=== PATIENT | male | born 1960 | race Caucasian/White ===

== ENCOUNTER → 2018-08-29 | Outpatient (CLI) | payer MEDICARE, MEDICAID ==
[~2018-08-29] MED LIST: BUPR150T9 MT; QUET25TA34 MT
== END | disposition home or self-care (01) ==
LOC: RAD 08:04
PROVIDERS: ATTEND Internal Medicine
DX: S93.401S Sprain of unspecified ligament of right ankle, sequela (principal); M17.11 Unilateral primary osteoarthritis, right knee; M25.471 Effusion, right ankle; X58.XXXS Exposure to other specified factors, sequela
CPT/HCPCS: 73562; 73610

== ENCOUNTER 2018-10-08 12:37 | Inpatient (IN) | payer MEDICARE, MEDICAID ==
[~2018-10-08] VITALS: Ht 180.3 cm; Wt 129.3 kg
[2018-10-08 13:09] VITALS: BP 118/70
[2018-10-08 14:00] VITALS: BP 118/70
[2018-10-08] MEDS ORDERED: CLONIDINE 0.1MG TABLET PO PRN (15:45)
[2018-10-08] MEDS ORDERED: ONDANSETRON HCL 4MG/2ML INJ IV PRN (15:45)
[2018-10-08] MEDS ORDERED: ENOXAPARIN 40MG/0.4ML SYR SUBCUT SCH (15:45)
[2018-10-08] MEDS ORDERED: ACETAMINOPHEN 325MG TABLET PO PRN (15:45)
[2018-10-08] MEDS ORDERED: IPRATROPIUM/ALBUTEROL 0.5-3(2.5)MG/3ML NEB INH PRN (15:45)
[2018-10-08 16:00] VITALS: BP 118/58
[2018-10-08] MEDS ORDERED: QUET25TA34 MT (17:07)
[2018-10-08] MEDS ORDERED: BUPR150T9 MT (17:07)
[2018-10-08] MEDS: METHYLPREDNISOLONE SOD SUCC 40 MG/ML VIAL IV SCH ×2 (17:39→22:02)
[2018-10-08] MEDS: ASPIRIN 81MG EC TABLET PO SCH (17:40)
[2018-10-08 20:00] VITALS: BP 148/82
[2018-10-08] MEDS ORDERED: FUROSEMIDE 40MG/4ML VIAL IVP ONE (21:00)
[2018-10-08] MEDS ORDERED: FUROSEMIDE 40MG TABLET PO SCH (21:00)
[2018-10-08] MEDS: AMLODIPINE 2.5MG TABLET PO SCH (21:11)
[2018-10-08] MEDS: ATORVASTATIN CALCIUM 10MG TABLET PO SCH (21:12)
[2018-10-08] MEDS: HYDROCODONE/ACETAMINOPHEN 5/325MG TABLET PO PRN (21:12)
[2018-10-08 21:57] LABS: BASOPHILS % 0.3 % (0.0-2.0); EOSINOPHILS % 0.3 % (0.0-5.0); HEMATOCRIT. 45.4 % (42.0-52.0); HEMOGLOBIN. 15.2 g/dL (14.0-18.0); LYMPHOCYTES % 9.4 % (20.0-50.0); MEAN CORPUSCULAR HEMOGLOBIN 28.9 pg (28.0-32.0); MEAN CORPUSCULAR VOLUME 86.5 fL (80.0-94.0); MEAN PLATELET VOLUME 7.5 fl (7.4-10.4); MONOCYTES % 2.1 % (2.0-8.0); NEUTROPHILS % 87.9 % (40.0-76.0); PLATELET 276 x1000/uL (130-400); RED BLOOD CELL COUNT 5.25 mill/uL (4.7-6.1); RED CELL DISTRIBUTION WIDTH 15.1 % (11.6-14.6)
[2018-10-08 21:58] LABS: CHLORIDE 103 mEq/L (98-107)
[2018-10-08] MEDS ORDERED: PROMETHAZINE/DEXTROMETHORPHAN 6.25-15MG/5ML BOTTLE 120ML PO PRN (22:00)
[2018-10-08 22:52] LABS: CREATINE KINASE 346 IU/L (39-308)
[2018-10-08 22:57] LABS: CLARITY URINE TURBID (CLEAR); COLOR URINE YELLOW (YELLOW); KETONES URINE NEGATIVE (NEGATIVE); LEUKOCYTE ESTERASE URINE NEGATIVE (NEGATIVE); NITRITE URINE NEGATIVE (NEGATIVE); OCCULT BLOOD URINE NEGATIVE (NEGATIVE); PH URINE 8.5 (4.5-8.0); PROTEIN URINE NEGATIVE (NEGATIVE); SPECIFIC GRAVITY URINE 1.016 (1.005-1.030); UROBILINOGEN URINE 0.2 E.U./dL (0.2-1.0)
[2018-10-08 23:08] LABS: *AMPHETAMINES SCREEN URINE NEGATIVE (NEGATIVE); *BARBITURATES SCREEN URINE NEGATIVE (NEGATIVE); *BENZODIAZEPINES SCREEN URINE NEGATIVE (NEGATIVE); *COCAINE SCREEN URINE NEGATIVE (NEGATIVE); METHADONE URINE SCREEN NEGATIVE (NEGATIVE); OPIATES URINE SCREEN NEGATIVE (NEGATIVE)
[2018-10-08 23:09] LABS: CANNABINOID URINE SCREEN NEGATIVE (NEGATIVE); PHENCYCLIDINE URINE SCREEN NEGATIVE (NEGATIVE)
[2018-10-09 00:45] VITALS: BP 124/82
[2018-10-09 04:00] VITALS: BP 127/72
[2018-10-09] MEDS: METHYLPREDNISOLONE SOD SUCC 40 MG/ML VIAL IV SCH ×2 (05:20→14:00)
[2018-10-09] MEDS: FUROSEMIDE 40MG/4ML VIAL IVP SCH ×2 (05:20→18:08)
[2018-10-09] MEDS: HYDROCODONE/ACETAMINOPHEN 5/325MG TABLET PO PRN ×2 (05:29→20:20)
[2018-10-09 06:57] LABS: BASOPHILS % 0.2 % (0.0-2.0); HEMATOCRIT. 45.4 % (42.0-52.0); LYMPHOCYTES % 12.1 % (20.0-50.0); MEAN CORPUSCULAR HEMOGLOBIN 28.7 pg (28.0-32.0); MEAN CORPUSCULAR VOLUME 86.7 fL (80.0-94.0); MEAN PLATELET VOLUME 7.6 fl (7.4-10.4); NEUTROPHILS % 86.7 % (40.0-76.0); PLATELET 314 x1000/uL (130-400); RED BLOOD CELL COUNT 5.24 mill/uL (4.7-6.1); RED CELL DISTRIBUTION WIDTH 14.9 % (11.6-14.6)
[2018-10-09 07:08] LABS: CHLORIDE 100 mEq/L (98-107)
[2018-10-09 07:21] LABS: CREATINE KINASE 295 IU/L (39-308); LDL CHOLESTEROL 95 mg/dL (5-100)
[2018-10-09 07:22] LABS: HDL CHOLESTEROL 59 mg/dL (40-59); T4 FREE 1.01 ng/dL (0.76-1.46)
[2018-10-09 08:00] VITALS: BP 122/78
[2018-10-09] MEDS: ASPIRIN 81MG EC TABLET PO SCH (08:42)
[2018-10-09] MEDS: AMLODIPINE 2.5MG TABLET PO SCH (08:42)
[2018-10-09] MEDS: ENOXAPARIN 30MG/0.3ML SYR SUBCUT SCH ×2 (08:42→20:20)
[2018-10-09 12:00] VITALS: BP 149/78
[2018-10-09 13:49] LABS: BG BASE EXCESS 0.5 mmol/L (-2.0-2.0); BG CARBOXYHEMOGLOBIN 1.1 % (0.5-1.5); BG DEOXYHEMOGLOBIN 3.2 % (0.0-5.0); BG FRACTION INSPIRED OXYGEN 21; BG HCO3 ACT 25.2 mmol/L (22.0-26.0); BG METHEMOGLOBIN 0.3 % (0.0-1.5); BG OXYGEN SATURATION 96.8 % (92.0-98.5); BG OXYHEMOGLOBIN 95.4 % (94.0-97.0); BG PCO2 41.1 mmHg (35.0-45.0); BG PH 7.406 (7.350-7.450); BG PO2 88.2 mmHg (75.0-100.0); BG SAMPLE SITE LEFT RADIAL; BG TOTAL HEMOGLOBIN 14.8 g/dL (12.0-18.0); BG VENT MODE ROOM AIR
[2018-10-09 16:00] VITALS: BP 128/83
[2018-10-09] MEDS ORDERED: IOHEXOL-350 100 ML BOTTLE ONE (16:27)
[2018-10-09] MEDS ORDERED: LEVOFLOXACIN 750MG PREMIX 150 ML IV SCH (18:00)
[2018-10-09] MEDS: NICOTINE 14MG PATCH TD SCH (18:08)
[2018-10-09] MEDS: DILTIAZEM HCL 30MG TABLET PO SCH (18:08)
[2018-10-09 18:12] LABS: PROTHROMBIN TIME 10.4 sec (9.6-11.0)
[2018-10-09 20:00] VITALS: BP 136/78
[2018-10-09] MEDS: ATORVASTATIN CALCIUM 10MG TABLET PO SCH (20:19)
[2018-10-09] MEDS ORDERED: TEMAZEPAM 15MG CAPSULE PO PRN (20:45)
[2018-10-09] MEDS: IPRATROPIUM/ALBUTEROL 0.5-3(2.5)MG/3ML NEB HHN SCH (21:05)
[2018-10-10] VITALS: BP 122/76
[2018-10-10] MEDS: IPRATROPIUM/ALBUTEROL 0.5-3(2.5)MG/3ML NEB HHN SCH ×4 (00:55→11:50)
[2018-10-10 04:00] VITALS: BP 120/74
[2018-10-10] MEDS: DILTIAZEM HCL 30MG TABLET PO SCH (05:08)
[2018-10-10] MEDS: FUROSEMIDE 40MG/4ML VIAL IVP SCH (05:12)
[2018-10-10 06:34] LABS: BASOPHILS % 0.2 % (0.0-2.0); HEMATOCRIT. 41.1 % (42.0-52.0); HEMOGLOBIN. 13.6 g/dL (14.0-18.0); LYMPHOCYTES % 7.4 % (20.0-50.0); MEAN CORPUSCULAR HEMOGLOBIN 28.6 pg (28.0-32.0); MEAN CORPUSCULAR VOLUME 86.3 fL (80.0-94.0); MEAN PLATELET VOLUME 7.6 fl (7.4-10.4); MONOCYTES % 6.1 % (2.0-8.0); NEUTROPHILS % 86.3 % (40.0-76.0); PLATELET 290 x1000/uL (130-400); RED BLOOD CELL COUNT 4.76 mill/uL (4.7-6.1); RED CELL DISTRIBUTION WIDTH 15.3 % (11.6-14.6)
[2018-10-10 07:49] LABS: CHLORIDE 101 mEq/L (98-107)
[2018-10-10] MEDS: ASPIRIN 81MG EC TABLET PO SCH (09:02)
[2018-10-10] MEDS: NICOTINE 14MG PATCH TD SCH (09:03)
[2018-10-10] MEDS: ENOXAPARIN 30MG/0.3ML SYR SUBCUT SCH (09:03)
[2018-10-10 09:48] VITALS: BP 127/82
[2018-10-10 12:00] VITALS: BP 135/77
[2018-10-10 13:29] VITALS: BP 132/76
[2018-10-10] MEDS ORDERED: METHYLPREDNISOLONE SOD SUCC 40 MG/ML VIAL IV SCH (17:00)
== END 2018-10-10 15:00 | disposition home or self-care (01) | DRG 191 ==
LOC: 5WST 12:37
PROVIDERS: ADMIT Internal Medicine; ATTEND Internal Medicine
DX: J44.1 Chronic obstructive pulmonary disease with (acute) exacerbation (principal); J81.1 Chronic pulmonary edema; D68.59 Other primary thrombophilia; E66.2 Morbid (severe) obesity with alveolar hypoventilation; E87.70 Fluid overload, unspecified; R06.03 Acute respiratory distress; I73.9 Peripheral vascular disease, unspecified; I10 Essential (primary) hypertension; D72.829 Elevated white blood cell count, unspecified; T38.0X5A Adverse effect of glucocorticoids and synthetic analogues, initial encounter; Z60.2 Problems related to living alone; R73.9 Hyperglycemia, unspecified; E78.5 Hyperlipidemia, unspecified; F17.210 Nicotine dependence, cigarettes, uncomplicated; M17.10 Unilateral primary osteoarthritis, unspecified knee; Z79.82 Long term (current) use of aspirin; Z71.6 Tobacco abuse counseling; Z71.3 Dietary counseling and surveillance; Y92.89 Other specified places as the place of occurrence of the external cause
CPT/HCPCS: 36415; 36600; 71045; 75635; 80048; 80061; 80305; 82375; 82550; 82805; 83036; 84439; 84443; 84484; 93005; 93306; 93923; 94640; J1650; J1940; J1956; J2920; J7620; Q9967